=== PATIENT | female | born 1995 | race Caucasian/White ===

== ENCOUNTER 2019-02-20 14:00 | Outpatient (CLI) | payer MEDICAID, SELFPAY ==
--- NOTE | 2019-02-20 | US_ITS ---
WS: [id number] OBSTETRICAL ULTRASOUND COMPLETE HISTORY: CARE SUBSEQUENT IN SECOND TRIMESTER COMPARISON: 11/11/2018 Single intrauterine gestation in Cephalic presentation. Cervix is Closed and normal length. Cervical length is 5.2 cm. Normal amount of amniotic fluid surrounds the fetus. Placenta: Posterior, no previa or abruption. Placenta grade 1 Heart: 153 BPM. Four chambers are identified. Anatomy: Intracranial structures and spine are normal. kidneys, stomach and urinary bladd er are unremarkable. Abdominal wall, three-vessel cord and cord insertion site are normal. 4 extremities are present. profile: Unremarkable. Gender: Male. measurements: BPD = 4.8 cm = 20w4d HC = 18.3 cm = 20w4d AC = 15.2 cm = 20w3d FL = 3.6 cm = 21w3d EFW: 380 g., Measurements are internally concordant. AGA by ultrasound: 20 weeks 5 days JEZ by ultrasound: 07/05/2019 Appropriate growth since the prior ultrasound. US/US OB >= 14 weeks fetus [id number] IMPRESSION: 1. Single intrauterine gestation of 20 weeks 5 days with an EDC of 07/05/2019, appropriate growth since the prior ultrasound. 2. Unremarkable screening survey of anatomy.
== END 2019-02-20 14:01 | disposition home or self-care (01) ==
LOC: RADOUTREAD 02-23 07:16
PROVIDERS: Family Provider Family Medicine; Visit Provider Family Medicine
DX: Z34.82 Encounter for supervision of other normal pregnancy, second trimester (principal)

== ENCOUNTER 2019-03-05 08:19 | Outpatient (CLI) | payer MEDICAID, SELFPAY ==
[2019-03-05 08:49] VITALS: BP 112/62; PULSE 116; BMI 32.6
[2019-03-05 08:50] VITALS: TEMP 37.2
[2019-03-05 09:15] LABS: Add Urine Culture? No; Bacteria Urine TRACE; Bilirubin Urine Neg (NEGATIVE); Blood Urine Neg (Negative); Glucose Urine UA Norm (Normal); Ketones Urine Negative (Negative); Leukocyte Esterase Urine Negative (Negative); Mucus Urine TRACE; Nitrate Urine Negative (Negative); Protein Urine Neg (Negative); RBC Urine 0-4 /hpf (0-2); Specific Gravity, Urine 1.005 (1.005-1.030); Squamous Epithelial Cell Urine 0-4 (0-5); Sulfosalicylic Acid Urine Negative; Urine Appearance Clear (CLEAR); Urine Color Yellow (Yellow); Urobilinogen Urine Norm (Negative)
[2019-03-05 09:24] VITALS: BP 113/73; PULSE 110
[2019-03-05] MEDS: acetaminophen 500 mg Tablet 1000 MG PO (09:24)
[2019-03-05 09:54] VITALS: BP 108/64; PULSE 105
[2019-03-05 10:24] VITALS: BP 106/66; PULSE 101
== END 2019-03-05 10:45 | disposition home or self-care (01) ==
LOC: OPOB 08:30 → OBGYN 10:28 → OPOB 03-06 07:49
PROVIDERS: Family Provider Family Medicine; Visit Provider Family Medicine
DX: O26.899 Other specified pregnancy related conditions, unspecified trimester (principal); Z3A.00 Weeks of gestation of pregnancy not specified; R10.9 Unspecified abdominal pain
CPT/HCPCS: 81001; 99211

== ENCOUNTER 2019-06-22 18:26 | Outpatient (CLI) | payer MEDICAID, SELFPAY ==
[2019-06-22 18:40] VITALS: BP 120/79; PULSE 118
[2019-06-22 18:48] VITALS: BMI 35.9
[2019-06-22 19:07] VITALS: BP 113/66; PULSE 109
[2019-06-22 19:34] LABS: Nitrazine Paper, PH Negative
== END 2019-06-22 19:10 | disposition home or self-care (01) ==
LOC: OPOB 18:29 → OBGYN 18:29
PROVIDERS: Family Provider Family Medicine; Visit Provider Family Medicine
DX: O26.899 Other specified pregnancy related conditions, unspecified trimester (principal); Z3A.00 Weeks of gestation of pregnancy not specified; N89.8 Other specified noninflammatory disorders of vagina
CPT/HCPCS: 83986; 99211

== ENCOUNTER 2019-06-26 21:44 | Outpatient (CLI) | payer MEDICAID, SELFPAY ==
[2019-06-26 22:00] VITALS: BMI 35.9
[2019-06-26 22:50] VITALS: BP 107/67; PULSE 98; RESP 16; TEMP 36.9
== END 2019-06-26 22:55 | disposition home or self-care (01) ==
LOC: OPOB 21:45 → OBGYN 22:30
PROVIDERS: Visit Provider Family Medicine
DX: O26.899 Other specified pregnancy related conditions, unspecified trimester (principal); Z3A.00 Weeks of gestation of pregnancy not specified; N89.8 Other specified noninflammatory disorders of vagina
CPT/HCPCS: 59025; 83986; 99211

== ENCOUNTER 2019-06-29 11:42 | Outpatient (CLI) | payer MEDICAID, SELFPAY ==
[2019-06-29 11:52] VITALS: BMI 36.1
[2019-06-29 11:56] VITALS: BP 119/70; PULSE 122
[2019-06-29 12:00] VITALS: RESP 16; TEMP 37
[2019-06-29 12:07] LABS: Nitrazine Paper, PH Negative
[2019-06-29 12:13] VITALS: BP 118/72; PULSE 112
== END 2019-06-29 12:25 | disposition home or self-care (01) ==
LOC: OPOB 11:44 → OBGYN 11:44
PROVIDERS: Visit Provider Family Medicine
DX: O26.899 Other specified pregnancy related conditions, unspecified trimester (principal); Z3A.00 Weeks of gestation of pregnancy not specified; N89.8 Other specified noninflammatory disorders of vagina
CPT/HCPCS: 59025; 83986; 99211

== ENCOUNTER 2019-07-02 13:33 | Outpatient (CLI) | payer MEDICAID, SELFPAY ==
[2019-07-02 13:43] VITALS: BP 122/81; PULSE 138
[2019-07-02 13:58] VITALS: BP 104/72; PULSE 128
[2019-07-02 14:07] VITALS: BMI 36.1
[2019-07-02 14:16] VITALS: BP 104/72; PULSE 128
[2019-07-02 14:41] LABS: Nitrazine Paper, PH Negative
== END 2019-07-02 14:20 | disposition home or self-care (01) ==
LOC: OPOB 13:35 → OBGYN 13:35
PROVIDERS: Visit Provider Family Medicine
DX: O26.899 Other specified pregnancy related conditions, unspecified trimester (principal); Z3A.00 Weeks of gestation of pregnancy not specified; N89.8 Other specified noninflammatory disorders of vagina
CPT/HCPCS: 59025; 83986; 99211

== ENCOUNTER 2019-07-04 00:19 | Inpatient (IN) | payer MEDICAID, SELFPAY ==
[2019-07-03 21:53] VITALS: BMI 36.1
[2019-07-03 22:10] VITALS: BP 133/83; PULSE 112
[2019-07-03 22:42] VITALS: TEMP 36.8
[2019-07-03 22:43] VITALS: BMI 36.1
[2019-07-04] VITALS (128 sets, daily range): BP systolic 0–179; BP diastolic 0–94; PULSE 54–153; RESP 16–18; TEMP 36.6–37.1; O2SAT 94–98
[2019-07-04 00:02] LABS: Basophils % 0.3 %; Eosinophils % 0.3 %; Hematocrit 36.9 % (37.0-47.0); Hemoglobin 11.7 g/dL (11.5-15.3); Lymphocytes % 16.9 %; Mean Corpuscular HGB Conc 31.7 g/dL (30.0-36.0); Mean Corpuscular Hemoglobin 29.1 pg (28.0-34.0); Mean Corpuscular Volume 91.8 fL (81-99); Mean Platelet Volume 10.1 fL (7.4-10.4); Monocytes # 1.2 10^3/uL (0.2-0.9); Neutrophils # 8.5 10^3/uL (1.8-7.7); Neutrophils % 71.7 %; Nucleated Red Blood Cells % 0 %; Platelet Count 265 10^3/cmm (130-400); Red Blood Count 4.02 10^6/uL (4.1-5.3); Red Cell Distribution Width 13.5 % (12.1-15.1); White Blood Count 11.8 10^3/uL (4.0-10.0)
--- NOTE | 2019-07-04 00:36 | ANES.PREANE2 ---
Pre-Anesthetic Assessment Pre-Anesthetic Assessment: Height/Weight: Height 1.68 m Pulse BP 110 H 139/78 07/04/19 00:22 07/04/19 00:22 Preop Diagnosis: labor Proposed Procedure: Epidural Was Beta Prisca taken within 24 hours: N/A Last Intake: 18:00 Social: Social History: No alcohol and No tobacco Exam: Pre-Anes Outpt Exam: alert, oriented x 3, clear to auscultation bilaterally and regular rate & rhythm Airway: Submandibular: WNL Cervical ROM: WNL MP: 2 Dentition: Full Pulmonary: Pulmonary: None reported CV/HEM: CV/HEM: None reported : : None reported Hepatic: Hepatic: None reported GI: GI: GERD (with ) Metabolic: Metabolic: Morbid obesity Musc/skel: Musc/skel: None reported Neuropsych: Neuropsych: None reported Anesthetic Plan: ASA status: 2 Anesthesia: Anesthesia Evaluation, Eval. for regional block and Regional (specify below) (epidural) Data Anesthesia CBC & Chem 7: 07/03/19 23:00 Other Labs: Laboratory Results - last 48 hr 07/03/19 23:00 WBC 11.8 H RBC 4.02 L Hgb 11.7 Hct 36.9 L MCV 91.8 MCH 29.1 MCHC 31.7 RDW 13.5 Plt Count 265 MPV 10.1 Neut % (Auto) 71.7 Lymph % (Auto) 16.9 [place] % (Auto) 10.0 Eos % (Auto) 0.3 Baso % (Auto) 0.3 Neut # (Auto) 8.5 H Lymph # (Auto) 2.0 [place] # (Auto) 1.2 H Eos # (Auto) 0.0 Baso # (Auto) 0.0 Nucleated RBC % (auto) 0 Nucleated RBCs # 0.0 Cardiac Studies: No Data to Display
--- NOTE | 2019-07-04 01:10 | ANES.PROC ---
Anesthesia Procedures Procedure/Date: 07/04/19 epidural Epidural: Time Out Performed: Yes Consents Signed: Procedure Consent and NPO Consent Consent: requested by attending/covering physician, from patient, risks and benefits reviewed and patient agrees to proceed Lumbar Level: L2-L3 Epidural position: sitting Epidural procedure: sterile prep of area (betadine), 1% lidocaine to numb the area (3ml), 18 g needle, neg for paresthesia, test dose given, 1.5% xylocaine 1:200k epi (5ml), 0.2% Ropivacaine bolus ml (5ml), placed PCEA, no systemic response, sterile dressing applied, L.U.D. no apparent complications and 0.2% Ropiavacaine @ mls/hr (13ml/hr)
[2019-07-04] MEDS: dextrose 5%-lactated ringers 1,000 ML 125 ML IV (02:42)
--- NOTE | 2019-07-04 03:50 | ANES.PROC ---
Anesthesia Procedures Procedure/Date: 07/04/19 Epidural: Time Out Performed: Yes Consents Signed: Procedure Consent, NPO Consent and No Consent Needed Consent: requested by attending/covering physician, from patient, risks and benefits reviewed and patient agrees to proceed Lumbar Level: L2-L3 Epidural position: sitting Epidural procedure: sterile prep of area (betadine), 1% lidocaine to numb the area, 18 g needle, neg for paresthesia, test dose given, 1.5% xylocaine 1:200k epi (5ml), placed PCEA, no systemic response, sterile dressing applied, L.U.D. no apparent complications and 0.2% Ropiavacaine @ mls/hr (13ml/hr) Additional Comments: Called to LDR 4 with pt now complaining of pain. Catheter noted to be backed out. Catheter removed with tip intact. Pt agreed to repeat epidural. Second epidural completed as noted above. Given 8ml Lidocaine 2%MPF via epidural. Pt tolerated well.
--- NOTE | 2019-07-04 06:18 | P.PCNOB_ITS ---
Delivery Note: Date of delivery: July 04, 2019 Pre-Delivery Course: The patient is a pleasant 24-year-old 2 para 1-0-0-1 at 39 weeks who presented to the hospital in active labor. Delivery: DELIVERY: The patient progressed to complete without difficulty. She delivered a male with a weight of 7 pounds 13 ounces with Apgars of 9, 9. The baby was delivered from the ROBERT position. The baby had a nuchal cord x2. I was not able to deliver the baby through the cord, and I was unable to reduce the cord over the baby's head. As a result, I clamped and cut the cord the baby's cord at the perineum prior to delivery of the baby. The baby was then completely delivered and placed on the mother's abdomen. There was no meconium. The placenta and 3 vessel cord were delivered intact shortly thereafter. The perineum and vaginal vault were carefully examined. No lacerations were noted. Both the mother and the baby were in stable condition. Shortly after delivery of the baby there was brisk blood flow. As result I did bimanual uterine massage. Blood loss was 250 mL Post-Delivery Status: Good A&P Assessment and plan (1) 39 weeks gestation of : Status: Acute (2) Spontaneous vaginal delivery: Status: Acute Coding Level of Care Code Acute Annealing Furnace Operator for Chg Fwd Diagnoses 39 weeks gestation of Z3A.39 Spontaneous vaginal delivery O80
--- NOTE | 2019-07-04 06:45 | PC.NURSE ---
patient positioned at this time for epidural redo.
[2019-07-04] MEDS: docusate sodium 100 mg Capsule PO ×2 (08:50→18:27)
[2019-07-04] MEDS: prenatal vitamin Capsule 1 CAP PO (08:50)
[2019-07-04] MEDS: HYDROcodone-acetaminophen 5-325 mg Tablet PO ×3 (10:18→23:41)
[2019-07-04] MEDS: lanolin oint 7 gm 1 APPLIC TOPICAL (10:18)
[2019-07-04 18:47] LABS: Hematocrit 30.7 % (37.0-47.0); Hemoglobin 9.7 g/dL (11.5-15.3); Mean Corpuscular HGB Conc 31.6 g/dL (30.0-36.0); Mean Corpuscular Hemoglobin 28.8 pg (28.0-34.0); Mean Corpuscular Volume 91.1 fL (81-99); Mean Platelet Volume 9.9 fL (7.4-10.4); Platelet Count 231 10^3/cmm (130-400); Red Blood Count 3.37 10^6/uL (4.1-5.3); Red Cell Distribution Width 13.6 % (12.1-15.1); White Blood Count 14.1 10^3/uL (4.0-10.0)
[2019-07-05 06:35] VITALS: BP 97/64; PULSE 73; RESP 18; TEMP 36.6; O2SAT 97
[2019-07-05] MEDS: docusate sodium 100 mg Capsule PO (08:54)
[2019-07-05] MEDS: prenatal vitamin Capsule 1 CAP PO (08:54)
--- NOTE | 2019-07-05 10:52 | P.DS_ITS ---
Discharge Providers FERTILIZER APPLICATOR Date of Admission: 07/04/19 00:19 Date of Discharge: 07/05/19 Attending Provider at Admission: Viraj Senior MD Attending Provider at Discharge: Viraj Senior MD Diagnoses at Discharge Discharge Diagnosis (1) 39 weeks gestation of : Status: Acute (2) Spontaneous vaginal delivery: Status: Acute Reason for Visit Reason for Visit: Reason For Visit: labor Hospital Course Hospital Course: The patient presented to the hospital in active labor. An amniotomy was performed. She progressed to complete and had an unremarkable delivery of a healthy-appearing male . She had no tears. She breast-fed well after the delivery. She had appropriate amount of bleeding. Her pain was under good control. Overall, her hospital stay was unremarkable. Information Peripartum Data: Infant Delivery Method: Vaginal Physical Exam Narrative: EXAM NARRATIVE: The patient is alert. She appears comfortable. Her heart has a regular rate and rhythm with no murmurs appreciated. Lungs are clear to auscultation bilaterally. Her fundus is firm and below the umbilicus. Discharge Data Data Completed and Pending: Labs from last 24 hours 07/04/19 18:36 WBC 14.1 H RBC 3.37 L Hgb 9.7 L Hct 30.7 L MCV 91.1 MCH 28.8 MCHC 31.6 RDW 13.6 Plt Count 231 MPV 9.9 Vitals: Last Vital Signs Temp 97.9 F 07/05/19 06:35 Pulse 73 07/05/19 06:35 Resp 18 07/05/19 06:35 BP 97/64 07/05/19 06:35 Pulse Ox 97 07/05/19 06:35 Discharge Plan Discharge Patient Disposition: Home, Self-Care Condition: Stable Prescriptions: New ibuprofen 800 mg Tablet 800 mg PO TID Qty: 45 RF: 0 -U 106.5-1 mg Capsule 1 cap PO DAILY Qty: 90 RF: 0 Discontinued famotidine [Pepcid] 20 mg Tablet 20 mg PO DAILY RF: 0 Discharge Orders: Discharge Order (Routine); Ordered 07/05/19 Ordered By: Viraj Senior Referrals: Viraj Senior MD [Physician] - 6 Weeks Discharge Diet: Usual diet Discharge Activity: Limit activity as instructed Discharge Attestations FERTILIZER APPLICATOR Time Spent in Discharge Care*: less than 30 min Coding Level of Care Code Acute Home Economics Teacher for Chg Fwd Diagnoses 39 weeks gestation of Z3A.39 Spontaneous vaginal delivery O80
[2019-07-05 11:30] VITALS: BP 110/73; PULSE 72; RESP 17; TEMP 36.8; O2SAT 97
[2019-07-05] MEDS: lanolin oint 7 gm 1 APPLIC TOPICAL (12:09)
== END 2019-07-05 12:20 | disposition home or self-care (01) | DRG 807 ==
LOC: OPOB 00:19 → OBGYN 00:19
PROVIDERS: Admitting Provider Family Medicine; Visit Provider Family Medicine
DX: O69.2XX0 Labor and delivery complicated by other cord entanglement, with compression, not applicable or unspecified (principal); Z37.0 Single live birth; Z3A.39 39 weeks gestation of pregnancy; O75.89 Other specified complications of labor and delivery; K21.9 Gastro-esophageal reflux disease without esophagitis
CPT/HCPCS: 12345; 36415; 51702; 59025; 59409; 85025; 85027; 99211; J2001

== ENCOUNTER 2022-05-01 19:37 | Emergency (ER) | payer MEDICAID, SELFPAY ==
--- NOTE | 2022-05-01 19:39 | XRR_ITS ---
PROCEDURE INFORMATION: Exam: XR Right Ankle Exam date and time: 05/01/2022 7:47 PM Age: 26 years old Clinical indication: Injury or trauma; Fall; Blunt trauma; Ankle; Right TECHNIQUE: Imaging protocol: Radiologic exam of the right ankle. Views: 3 or more views. COMPARISON: No relevant prior studies available. FINDINGS: Bones/joints: Osseous structures and joint surfaces are intact. No fracture or malalignment. Soft tissues: Normal. XR/XR ankle RT min 3V* [id number] IMPRESSION: Normal right ankle
--- NOTE | 2022-05-01 19:39 | XRR_ITS ---
PROCEDURE INFORMATION: Exam: XR Right Wrist Exam date and time: 05/01/2022 7:48 PM Age: 26 years old Clinical indication: Injury or trauma; Fall; Blunt trauma (contusions or hematomas); Wrist; Right TECHNIQUE: Imaging protocol: Radiologic exam of the right wrist. Views: 3 or more views. COMPARISON: No relevant prior studies available. FINDINGS: Bones/joints: Osseous structures are intact. No fracture or malalignment. Visualized joint surfaces are preserved. Soft tissues: Unremarkable. XR/XR wrist RT min 3V* [id number] IMPRESSION: Negative exam. No acute bony abnormalities.
[2022-05-01 20:00] VITALS: BP 117/81; PULSE 77; RESP 18; TEMP 36.9; O2SAT 99
--- NOTE | 2022-05-01 20:34 | W.ED.EXTPRO ---
HPI - Extremity Problem General: Chief complaint: Extremity Injury, Lower Stated complaint: R ankle injury; R wrist injury Time Seen by Provider: 05/01/22 20:27 Source: patient Mode of arrival: ambulatory Limitations: no limitations History of Present Illness: 26-year-old female states she was playing volleyball tonight states that she jumped up and she came down she twisted her right ankle she states she has lateral ankle pain she rates a 8 out of 10 states she has not been able to bear any weight she states she try to catch herself she felt as some slight right wrist pain she denies any other injuries. Associated symptoms: Deny chest pain, fever(s) or rash Review of Systems Const: Denies: fever(s), chills, body aches or change in appetite Eyes: Denies: blurry vision or eye discomfort ENMT: Denies: throat pain or dental pain Card: Denies: chest pain Resp: Denies: dyspnea GI: Denies: abdominal pain, nausea, vomiting or diarrhea : Denies: dysuria Musc: Reports: extremity pain; Denies: neck pain or back pain Skin/Breast: Denies: rash Neuro: Denies: headache(s) Psych: Denies: depression Javier/Lymph: Denies: easy bruising All/Imm: Denies: urticaria PFSH ED PFSH: Medical History (Updated 05/01/22 @ 20:42 by Kylah Talbert MD) No pertinent past medical history Social History (Updated 05/01/22 @ 20:42 by Kylah Talbert MD) Substance/Drug Use: never Physical Exam Const: COMMON NORMALS: no acute distress and patient oriented x3 HENMT: COMMON NORMALS: normocephalic HEAD & SCALP: normocephalic Eye: COMMON NORMALS: conjunctivae normal CONJUNCTIVA: Yes conjunctivae normal Neck/C-Spine: COMMON NORMALS: supple Chest: COMMONS NORMALS: normal inspection of the chest Resp: COMMON NORMALS: normal respiratory effort Cardio: COMMON NORMALS: regular rate RATE: regular rate GI: INSPECTION: Yes normal to inspection Extremity: NARRATIVE EXTREMITY EXAM: Tenderness over right lateral ankle no obvious deformity. Neuro: COMMON NORMALS: patient oriented x3 Psych: COMMON NORMALS: mental status grossly normal Skin: COMMON NORMALS: no rashes or lesions noted GENERAL SKIN EXAM: no rashes or lesions noted Course Vital Signs: Vital signs: Vital Signs Temperature 98.4 F 05/01/22 20:00 Pulse Rate 77 05/01/22 20:00 Respiratory Rate 18 05/01/22 20:00 Blood Pressure 117/81 05/01/22 20:00 Pulse Oximetry 99 05/01/22 20:00 Oxygen Delivery Me thod 05/01/22 20:00 MDM - Extremity (Nontraumatic) Medical Decision Making Patient presents here with ankle sprain to the right ankle will Eloy wrap she is to use crutches at home only weight-bear as tolerated x-ray of her wrist and ankle are negative we will get her follow-up with podiatry she is return if worsening. Lab Data Radiology Impressions Ankle X-Ray 05/01/22 19:39 IMPRESSION: Normal right ankle Wrist X-Ray 05/01/22 19:39 IMPRESSION: Negative exam. No acute bony abnormalities. Discharge Plan Discharge Patient Disposition: Home Clinical Impression: Ankle sprain and strain Condition: Stable Prescriptions: New naproxen [Naprosyn] 500 mg tablet 500 mg PO BID PRN (Reason: pain) Qty: 20 0RF No Action ibuprofen 800 mg Tablet 800 mg PO TID Qty: 45 0RF -U 106.5-1 mg Capsule 1 cap PO DAILY Qty: 90 0RF Discharge Orders: Discharge ED (Routine); Ordered 05/01/22 Ordered By: Kylah Talbert Referrals: Viraj Senior MD [Primary Care Provider] - Discharge Diet: Advance as tolerated Discharge Activity: Increase activity as tolerated Patient Instructions: Ankle Sprain (ED) Coding Level of Care Code ED Double End Tenoner Setter for Abhay Garcia
[2022-05-01] MEDS: HYDROcodone-acetaminophen 5-325 mg Tablet 1 TAB PO (20:43)
[2022-05-01 20:49] VITALS: PULSE 96; RESP 14; O2SAT 98
--- NOTE | 2022-05-02 10:35 | DCPLANNER ---
Addendum entered by Zoë Hebert 05/04/22 08:05: car rental agency manager received the following message from the podiatry clinic regarding follow up appointment: Attempted to call again, A male answered the phone and hung up will make a final attempt tomorrow On Wed 1:46p May 02, 2022 Cait Small (Covering For: Podiatry Front Office) Wrote To: Zoë Hebert Left vm for pt to call back to schedule Addendum entered by Zoë Hebert 05/03/22 07:17: car rental agency manager received the following message from the podiatry clinic regarding follow up appointment: Left vm for pt to call back to schedule Original Note: car rental agency manager had message to schedule a follow up appointment for patient with podiatry. car rental agency manager sent patients information to the front office staff at podiatry. Patients information will be reviewed, clinic will call patient with appointment information.
== END 2022-05-01 21:02 | disposition home or self-care (01) ==
PROVIDERS: Emergency Provider Emergency Medicine; PCP Family Medicine
DX: S93.401A Sprain of unspecified ligament of right ankle, initial encounter (principal); S96.911A Strain of unspecified muscle and tendon at ankle and foot level, right foot, initial encounter; X50.1XXA Overexertion from prolonged static or awkward postures, initial encounter; Y93.68 Activity, volleyball (beach) (court)
CPT/HCPCS: 73110; 73610; 99283

== ENCOUNTER 2023-11-03 12:44 | Emergency (ER) | payer OTHER, SELFPAY ==
[2023-11-03 12:59] VITALS: BP 103/69; PULSE 70; RESP 16; TEMP 36.8; O2SAT 100
--- NOTE | 2023-11-03 13:55 | XRR_ITS ---
PROCEDURE INFORMATION: Exam: XR Left Foot Exam date and time: 11/03/2023 2:09 PM Age: 28 years old Clinical indication: Injury or trauma; Other: Knife fell on top of foot; Knife wound; Toes; Left great toe; Additional info: Puncture wound TECHNIQUE: Imaging protocol: Radiologic exam of the left foot. Views: 3 or more views. COMPARISON: No relevant prior studies available. FINDINGS: Bones/joints: Normal. Soft tissues: No radiopaque foreign body. XR/XR foot LT min 3V* [id number] IMPRESSION: No acute findings.
--- NOTE | 2023-11-03 13:56 | ED_ITS ---
HPI - Wound/Laceration General: Chief Complaint: Wound/Laceration Stated Complaint: left foot cut Time Seen by Provider: 11/03/23 13:55 History of Present Illness: 28-year-old female comes in today for in jury to the left foot. 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 Patient has a 1 cm laceration to the dorsal left foot. Patient cannot recall her last tetanus shot. Patient appears nontoxic. Patient appears in mild pain. Related Data Previous Rx's Medication Instructions Recorded ibuprofen 800 mg tablet 800 mg PO TID #45 tabs 07/05/19 naproxen 500 mg tablet (Naprosyn) 500 mg PO BID PRN pain #20 tabs 05/01/22 amoxicillin 875 mg-potassium 1 tab PO BID 7 days #14 tabs 11/03/23 clavulanate 125 mg tablet Allergies Allergy/AdvReac Type Severity Reaction Status Date / Time No Known Allergies Allergy Verified 11/03/23 13:06 Review of Systems General: Reports: 10 or more systems reviewed and unremarkable except in HPI and below PFSH ED PFSH: Medical History No pertinent past medical history Social History Substance/Drug Use: never Physical Exam Const: COMMON NORMALS: alert HENMT: COMMON NORMALS: normocephalic HEAD & SCALP: normocephalic Neck/C-Spine: COMMON NORMALS: full ROM Resp: COMMON NORMALS: normal respiratory effort and clear to auscultation bilaterally AUSCULTATION: clear to auscultation bilaterally Cardio: COMMON NORMALS: regular rate RATE: regular rate Back/Pelvis: COMMON NORMALS: thoracic and lumbar spine normal to inspection Extremity: LEFT LOWER EXTREMITY: Yes foot & digits (1 cm laceration dorsum left foot) Neuro: SENSORIUM/ORIENTATION: Yes alert Skin: TRAUMA: laceration (1 cm dorsum left foot) linear Procedures Laceration Laceration 1: Site: lower extremity Side (If applicable): left Size (cm): 1 Description: linear Depth: simple, single layer Local Anesthetic: lidocaine 1% and with epi Amount of anesthesia used (mL): 1 Pre-repair: wound explored and irrigated extensively Skin layer closed with: nylon Size (cm): 4-0 Number of sutures: 1 Technique: simple, interrupted Course Vital Signs: Vital signs: Vital Signs Temperature 98.3 F 11/03/23 12:59 Pulse Rate 70 11/03/23 12:59 Respiratory Rate 16 11/03/23 12:59 Blood Pressure 103/69 11/03/23 12:59 Pulse Oximetry 100 11/03/23 12:59 Oxygen Delivery Me thod Room Air 11/03/23 12:59 MDM - Wound/Laceration Medical Decision Making 28-year-old female comes in today with a laceration to the dorsum left foot. On exam patient has a 1 cm laceration. Dorsal pedis pulse in the foot is intact. Patient has some mild bruising surrounding the wound. Distal sensation and cap refill is intact. Differential diagnosis includes need for prophylaxis tetanus, need for prophylaxis antibiotic, laceration, fracture of the foot. X-ray noted no foreign body or fracture. Wound was thoroughly cleaned and closed with 1 suture. Patient be kept on Augmentin for prophylaxis antibiotic treatment. Reviewed postprocedure care and instructions with patient and reported understanding. XR interpretation done by ED provider, pending radiology final review Discharge Plan Discharge Patient Disposition: Home Clinical Impression: Laceration of foot, left Qualifiers: Encounter type: initial encounter Qualified Code(s): S91.312A - Laceration without foreign body, left foot, initial encounter Condition: Stable Prescriptions: Continued amoxicillin-pot clavulanate 875-125 mg tablet 1 tab PO BID 7 Days Qty: 14 0RF No Action ibuprofen 800 mg Tablet 800 mg PO TID Qty: 45 0RF Naprosyn 500 mg tablet 500 mg PO BID PRN (Reason: pain) Qty: 20 0RF Discharge Orders: Discharge ED (Routine); Ordered 11/03/23 Ordered By: Toni Castelan Referrals: Viraj Senior MD [Primary Care Provider] - Discharge Diet: Usual diet Discharge Activity: Increase activity as tolerated Patient Instructions: Laceration (ED) Activity Restrictions/Additional Instructions: Keep wound clean and dry. Activity as tolerated. Sutures need to come out in 7 to 10 days. Monitor site for increasing infection such as increased redness, pain, swelling. Do not get the wound wet for the first 48 hours. After that you can wash the wound gently with mild soap and water try not to submerge underwater for long periods of time. Follow-up with primary care in 1 week for recheck. Return to ED for new concerns. Coding Level of Care Code ED Motor Scooter Mechanic for Abhay Garcia
[2023-11-03] MEDS: tetanus-dipt-pertussis 0.5 mL SDV IM (14:28)
[2023-11-03] MEDS: amoxicillin-clav 875-125 mg Tablet 1 TAB PO (14:28)
[2023-11-03 14:58] VITALS: BP 118/77; PULSE 74; O2SAT 97
== END 2023-11-03 15:00 | disposition home or self-care (01) ==
PROVIDERS: Emergency Provider Nurse Practitioner Family; PCP Family Medicine
DX: S91.312A Laceration without foreign body, left foot, initial encounter (principal); W26.0XXA Contact with knife, initial encounter; Z23 Encounter for immunization
CPT/HCPCS: 12001; 73630; 90471; 90715; 99283

== ENCOUNTER → 2023-12-16 14:09 | Outpatient (BNVA) | payer OTHER, SELFPAY | PROVIDERS: PCP Family Medicine; Visit Provider Nurse Practitioner | DX: R10.2 Pelvic and perineal pain (principal) | CPT/HCPCS: 81000; 81025 ==